=== PATIENT | male | born 1965 | race Caucasian/White ===

== ENCOUNTER 2019-04-25 12:53 | Inpatient (IN) | payer OTHER ==
[~2019-04-25] VITALS: Ht 185.4 cm; Wt 124.8 kg
[2019-04-25] VITALS (27 sets, daily range): BP systolic 129–179; BP diastolic 70–99; PULSE 98–118; RESP 12–29; Ht 185.4 cm; Wt 124.8 kg
[~2019-04-25 12:53] MED LIST: CEFAZOLIN 1 GM INJ ONE; ROCURONIUM 50 MG INJ ONE; SUCCINYLCHOLINE CHLORIDE 100 MG/5 ML SYG IV ONE
[2019-04-25] MEDS ORDERED: LISI10TA2 PO (13:22)
[2019-04-25] MEDS ORDERED: AMLO5TAB4 PO (13:22)
[2019-04-25] MEDS ORDERED: ATOR20TA38 PO (13:23)
--- NOTE | 2019-04-25 15:17 | HPN ---
Date/Time of Note Date/Time of Note DATE: 04/25/19 TIME: 15:17 Interval H&P Admission Note Pt. seen H&P reviewed: No system changes KAREN KING MD Apr 25, 2019 15:17
[2019-04-25] MEDS ORDERED: SURGIFOAM POWDER 1 GM KIT ONE (15:33)
[2019-04-25] MEDS ORDERED: POLYMYXIN/BACITRACIN 1L IRRIG ONE (15:34)
[2019-04-25] MEDS ORDERED: GELATIN SIZE 100 SPONGE ONE (15:34)
[2019-04-25] MEDS ORDERED: BUPIVACAINE 0.5%/EPI (SDV) 30 ML INJ ONE (15:34)
[2019-04-25] MEDS ORDERED: THROMBIN (BOVINE) 5,000 UNIT VIAL TP ONE (15:34)
--- NOTE | 2019-04-25 15:48 | PREAC ---
Date/Time of Note Date/Time of Note DATE: 04/25/19 TIME: 15:45 Anesthesia Eval and Record Evaluation Time Pre-Procedure Interview DATE: 04/25/19 TIME: 15:45 Age 53 Sex male NPO: 8 hrs Preoperative diagnosis C6-C7 RIGHT SIDED HERNIATED NUCLEUS PULPOSUS WITH RADICULOPATHY Planned procedure C5-C6 C6-C7 ACDF Past Medical History Past Medical History: Includes Cardio: HTN, Dyslipidemia GI: Obesity Surgery & Anesthesia Issues No known issue Meds Anticoagulation: No Beta Conchis within 24 hr: No Reason Beta Conchis not given: Pt. not on B-Conchis Reported Medications Atorvastatin Calcium* (Atorvastatin Calcium*) 20 Mg Tablet, 20 MG PO QHS, #30 TAB 04/25/19 Lisinopril* (Lisinopril*) 10 Mg Tablet, 10 MG PO DAILY, #30 TAB 04/25/19 Amlodipine Besylate* (Norvasc*) 5 Mg Tablet, 5 MG PO DAILY, TAB 04/25/19 Meds reviewed: Yes Allergies Coded Allergies: No Known Allergy (Unverified , 04/25/19) Allergies Reviewed: Yes Labs/Studies Labs Reviewed: Reviewed by anesthesiologist test: N/A Studies: ECG (NL), CXR (NAPD) Pre-procedure Exam Last vitals Vital Signs Date Temp Pulse Resp B/P (MAP) Pulse Ox O2 O2 Flow FiO2 Time Delivery Rate 04/25/19 97.9 98 16 129/84 97 13:54 (99) Airway: Adequate mouth opening, Adequate thyromental dist Mallampati: Mallampati II Teeth: Normal Lung: Normal Heart: Normal ASA Physical Status ASA physical status: 2 Emergency: None Planned Anesthetic General/MAC: ETT Planned Pain Management Parenteral pain med Pre-operative Attestations Prior to commencing anesthesia and surgery, the patient was re-evaluated, there was verification of: *The patient's identity *The results of appropriate recent lab work and preoperative vital signs *The above evaluation not changing prior to induction *Anesthetic plan, risk benefits, alternative and complications discussed with patient/family; questions answered; patient/family understands, accepts and wishes to proceed. Spenser Mckay M.D. Apr 25, 2019 15:47
[2019-04-25] MEDS ORDERED: PROPOFOL 20 ML ONE (15:51)
[2019-04-25] MEDS ORDERED: DEXAMETHASONE 4 MG/ML 5 ML INJ ONE (15:51)
[2019-04-25] MEDS ORDERED: MIDAZOLAM 1 MG/ML 2 ML INJ ONE (15:51)
[2019-04-25] MEDS ORDERED: GLYCOPYRROLATE 0.4 MG INJ ONE (15:51)
[2019-04-25] MEDS ORDERED: CEFAZOLIN 1 GM INJ ONE (15:51)
[2019-04-25] MEDS ORDERED: ONDANSETRON 4 MG INJ ONE (15:51)
[2019-04-25] MEDS ORDERED: NEOSTIGMINE 3 MG/3 ML SYRINGE ONE (15:51)
[2019-04-25] MEDS ORDERED: ROCURONIUM 50 MG INJ ONE (15:51)
[2019-04-25] MEDS ORDERED: EPHEDrine 25 MG/5 ML SYG IV PRN (16:00)
[2019-04-25] MEDS ORDERED: THROMBIN 5000 UNIT VIAL TOP ONE ×3 (16:00→20:30)
[2019-04-25] MEDS ORDERED: OXYCODONE/ACETAMINOPHEN (5/325) TAB PO PRN ×2 (16:00)
[2019-04-25] MEDS ORDERED: ONDANSETRON 4 MG INJ IV PRN ×2 (16:00→21:00)
[2019-04-25] MEDS ORDERED: DIPHENHYDRAMINE 50 MG INJ IV PRN (16:00)
[2019-04-25] MEDS ORDERED: hydrALAzine 20 MG INJ IV PRN (16:00)
[2019-04-25] MEDS ORDERED: ALBUTEROL 0.083% (NEB) 2.5 MG/3 ML AMP HHN PRN (16:00)
[2019-04-25] MEDS ORDERED: TRIMETHOBENZAMIDE 100 MG/ML VIAL IM PRN (16:00)
[2019-04-25] MEDS ORDERED: IPRATROPIUM (NEB) 0.5 MG/2.5 ML AMP HHN PRN (16:00)
[2019-04-25] MEDS ORDERED: MIDAZOLAM 1 MG/ML 2 ML INJ IV PRN (16:00)
[2019-04-25] MEDS ORDERED: HYDROmorphONE 1 MG/5 ML IV SYRINGE IV PRN ×3 (16:00)
[2019-04-25] MEDS ORDERED: FENTAnyl 50 MCG/ML VIAL IV PRN ×2 (16:00)
[2019-04-25] MEDS ORDERED: MEPERIDINE 25 MG INJ IV PRN (16:00)
[2019-04-25] MEDS ORDERED: FENTAnyl 50 MCG/ML VIAL ONE ×2 (19:45→21:32)
--- NOTE | 2019-04-25 20:51 | OPR ---
Date/Time of Note Date/Time of Note DATE: 04/25/19 TIME: 20:44 Operative Report Free Text/Dictation DATE OF OPERATION: 04/25/2019 PREOPERATIVE DIAGNOSES: 1. C5-6 degenerative disk disease with severe central and foraminal stenosis with right greater than left sided radiculopathy 2. C6-7 degenerative disk disease with severe central and foraminal stenosis with right greater than left sided radiculopathy 3. Morbid Obesity BMI: 36.3 kg/m2 w/ hx of HTN POSTOPERATIVE DIAGNOSES: 1. C5-6 degenerative disk disease with severe central and foraminal stenosis wi th right greater than left sided radiculopathy 2. C6-7 degenerative disk disease with severe central and foraminal stenosis with right greater than left sided radiculopathy 3. Morbid Obesity BMI: 36.3 kg/m2 w/ hx of HTN OPERATION PERFORMED: 1.Anterior cervical level C5-6 diskectomy with central and foraminal decompression 2. Anterior cervical disc C5-6 instrumented fusion with allograft 3.Anterior cervical level C6-7 diskectomy with central and foraminal decompression 4. Anterior cervical disc C6-7 instrumented fusion with allograft 5. Use of operative microscope SURGEON: Karen King MD SURVEY PROJECT MANAGER: MEJIA Carrasco INDICATIONS: Patient is a 53 -year-old male who presents with a 6 week history of neck and right greater than right upper extremity pain with progressive weakness. After having failed all attempts at conservative management, surgical treatment was recommended. He understood the risks included, but were not limited to, infection, neurologic injury, verve root and spinal cord injury, blood loss, dysphagia, dysphonia, espohogeal injury, dural tear, pseudarthosis, adjacent segment disease, persistence of preoperative symptoms and a potential need for further operative procedures and he elected to proceed with surgery. PROCEDURE IN DETAIL: The patient was identified in the pre-operative area where the operative site was marked in indelible ink. He was brought in the operating room. General anesthesia was obtained. Preoperative antibiotics were given. He was carefully positioned supine on the radiolucent table. The arms were padded and tucked at the sides. The neck was sterilely prepped and draped in the usual fashion. A standard left-sided skin incision was made in a prominent anterior skin fold. This was continued down through subcutaneous tissue to the platysma fascia. Full-thickness skin flaps were developed. The platysma was split in line with the direction of its fibers. The dissection proceeded through the deep cervical fascia at the interval between the esophagus and spine. The prev ertebral fascia was carefully incised, cleared off at the anterior aspect of the C6-7 disk space. The anterior longitudinal ligament was carefully isolated as was the longus coli bilaterally. A [place] retraction cannula was placed into the C6 vertebral body, and an intraoperative radiograph was obtained to confirm the location of the midline along with the operative level. Once this was confirmed, a 2nd [place] pin was placed in the C7 vertebral body, and the longus colli was mobilized bilaterally using bipolar cautery and an elevator. A deep self- retaining retractor was placed underneath the longus colli bilaterally and then distraction was applied across the interspace. The operative microscope was at this point brought in. The osteophyte projecting over the anterior aspect of the C6-7 disk space was at this point resected with a spinal rongeur, and then the anterior portion of the disk was incised with a #15 blade. The disk was excised in its entirety using a series of pituitary rongeurs and angled curettes back to the posterior longitudinal ligament. The uncovertebral osteophyte was resected to allow for foraminal decompression. A foraminotomy was performed bilaterally until a probe could be easily passed along the pathway of the C7 nerve roots. The posterior disk and the PLL were also removed using a nerve hook and a 2mm kerrison. The cord was noted to be decompressed. Hemostasis was obtained at this point, and then a series of trial sizers were used to select an appropriated size allograft spacer. Care was take not to disrupt the endplates. Intraoperative radiographs demonstrated good alignment of the trial, and then the final implant was selected and then inserted into the disk space. This was positioned appropriately and extended to the back of the C6 and C7 vertebral bodies. We used a 7mm height and 7 degree lordotic allograft implant. We then focused on the C5-6 level. Once this was confirmed, a 2nd [place] pin was placed in the C6 vertebral body, and the longus colli was mobilized bilaterally using bipolar cautery and an elevator. A deep self-retaining retractor was placed underneath the longus colli bilaterally and then distraction was applied across the interspace. The operative microscope was at this point brought in. The osteophyte projecting over the anterior aspect of the C5-6 disk space was at this point resected with a spinal rongeur, and then the anterior portion of the disk was incised with a #15 blade. The disk was excised in its entirety using a series of pituitary rongeurs and angled curettes back to the posterior longitudinal ligament. The uncovertebral osteophyte was resected to allow for foraminal decompression. A foraminotomy was performed bilaterally until a probe could be easily passed along the pathway of the C6 nerve roots. The posterior disk and the PLL were also removed using a nerve hook and a 2mm kerrison. The cord was noted to be decompressed. Hemostasis was obtained at this point, and then a series of trial sizers were used to select an appropriated size allograft spacer. Care was take not to disrupt the endplates. Intraoperative radiographs demonstrated good alignment of the trial, and then the final implant was selected and then inserted into the disk space. This was positioned appropriately and extended to the back of the C5 and C6 vertebral bodies. We used a 6mm height and 7 degree lordotic allograft implant. We then chose an appropriate sized plate (32mm) was placed and secured it in standard fashion. X-Rays were taken to ensure appropriate alignment and length of the plate as well as screw sizes. An extra 50 minutes was taken during this procedure due to the complexity of the case given the patients body habitus and morbid obesity (BMI: 36.3 kg/m2 w/ hx of HTN). The operative site was washed out extensively with sterile normal saline. There was no significant bleeding. The [place] pins were removed, and the sites were blocked off with bone wax. The platysma fascia was then closed with 3-0 Vicryl suture in a running simple fashion over a medium hemovac drain, followed by 4-0 moncryl to close the skin in a running subcuticular fashion. Dermabond was placed, followed by a sterile dressing. The patient was extubated and transferred out to the postanesthesia care unit in a hard collar in good condition. There were no complications. Procedure Date: Apr 25, 2019 Preoperative Diagnosis 1. C5-6 degenerative disk disease with severe central and foraminal stenosis with right greater than left sided radiculopathy 2. C6-7 degenerative disk disease with severe central and foraminal stenosis with right greater than left sided radiculopathy 3. Morbid Obesity BMI: 36.3 kg/m2 w/ hx of HTN Postoperative Diagnosis 1. C5-6 degenerative disk disease with severe central and foraminal stenosis with right greater than left sided radiculopathy 2. C6-7 degenerative disk disease with severe central and foraminal stenosis with right greater than left sided radiculopathy 3. Morbid Obesity BMI: 36.3 kg/m2 w/ hx of HTN Operation/Procedure Performed 1.Anterior cervical level C5-6 diskectomy with central and foraminal decom pression 2. Anterior cervical disc C5-6 instrumented fusion with allograft 3.Anterior cervical level C6-7 diskectomy with central and foraminal decompression 4. Anterior cervical disc C6-7 instrumented fusion with allograft 5. Use of operative microscope Surgeon see signature line Reed Or Wind Instrument Tuner MEJIA Upton Anesthesia Type: general Estimated Blood Loss: 10 - 50 ml's Transfusion none Specimen none Grafts/Implants see op report Tubes/Drains medium hemovac Complications none Pt Condition Post Procedure: stable Disposition: PACU Procedure Description PROCEDURE IN DETAIL: The patient was identified in the pre-operative area where the operative site was marked in indelible ink. He was brought in the operating room. General anesthesia was obtained. Preoperative antibiotics were given. He was carefully positioned supine on the radiolucent table. The arms were padded and tucked at the sides. The neck was sterilely prepped and draped in the usual fashion. A standard left-sided skin incision was made in a prominent anterior skin fold. This was continued down through subcutaneous tissue to the platysma fascia. Full-thickness skin flaps were developed. The platysma was split in line with the direction of its fibers. The dissection proceeded through the deep cervical fascia at the interval between the esophagus and spine. The prevertebral fascia was carefully incised, cleared off at the anterior aspect of the C6-7 disk space. The anterior longitudinal ligament was carefully isolated as was the longus coli bilaterally. A [place] retraction cannula was placed into the C6 vertebral body, and an intraoperative radiograph was obtained to confirm the location of the midline along with the operative level. Once this was confirmed, a 2nd [place] pin was placed in the C7 vertebral body, and the longus colli was mobilized bilaterally using bipolar cautery and an elevator. A deep self-retaining retractor was placed underneath the longus colli bilaterally and then distraction was applied across the interspace. The operative microscope was at this point brought in. The osteophyte projecting over the anterior aspect of the C6-7 disk space was at this point resected with a spinal rongeur, and then the anterior portion of the disk was incised with a #15 blade. The disk was excised in its entirety using a series of pituitary rongeurs and angled curettes back to the posterior longitudinal ligament. The uncovertebral osteophyte was resected to allow for foraminal decompression. A foraminotomy was performed bilaterally until a probe could be easily passed along the pathway of the C7 nerve roots. The posterior disk and the PLL were also removed using a nerve hook and a 2mm kerrison. The cord was noted to be decompressed. Hemostasis was obtained at this point, and then a series of trial sizers were used to select an appropriated size allograft spacer. Care was take not to disrupt the endplates. Intraoperative radiographs demonstrated good alignment of the trial, and then the final implant was selected and then inserted into the disk space. This was positioned appropriately and extended to the back of the C6 and C7 vertebral bodies. We used a 7mm height and 7 degree lordotic allograft implant. We then focused on the C5-6 level. Once this was confirmed, a 2nd [place] pin was placed in the C6 vertebral body, and the longus colli was mobilized bilaterally using bipolar cautery and an elevator. A deep self-retaining retractor was placed underneath the longus colli bilaterally and then distraction was applied across the interspace. The operative microscope was at this point brought in. The osteophyte projecting over the anterior aspect of the C5-6 disk space was at this point resected with a spinal rongeur, and then the anterior portion of the disk was incised with a #15 blade. The disk was excised in its entirety using a series of pituitary rongeurs and angled curettes back to the posterior longitudinal ligament. The uncovertebral osteophyte was resected to allow for foraminal decompression. A foraminotomy was performed bilaterally until a probe could be easily passed along the pathway of the C6 nerve roots. The posterior disk and the PLL were also removed using a nerve hook and a 2mm kerrison. The cord was noted to be decompressed. Hemostasis was obtained at this point, and then a series of trial sizers were used to select an appropriated size allograft spacer. Care was take not to disrupt the endplates. Intraoperative radiographs demonstrated good alignment of the trial, and then the final implant was selected and then inserted into the disk space. This was positioned appropriately and extended to the back of the C5 and C6 vertebral bodies. We used a 6mm height and 7 degree lordotic allograft implant. We then chose an appropriate sized plate (32mm) was placed and secured it in standard fashion. X-Rays were taken to ensure appropriate alignment and length of the plate as well as screw sizes. An extra 50 minutes was taken during this procedure due to the complexity of the case given the patients body habitus and morbid obesity (BMI: 36.3 kg/m2 w/ hx of HTN). The operative site was washed out extensively with sterile normal saline. There was no significant bleeding. The [place] pins were removed, and the sites were blocked off with bone wax. The platysma fascia was then closed with 3-0 Vicryl suture in a running simple fashion over a medium hemovac drain, followed by 4-0 moncryl to close the skin in a running subcuticular fashion. Dermabond was placed, followed by a sterile dressing. The patient was extubated and transferred out to the postanesthesia care unit in a hard collar in good condition. There were no complications. KAREN KING MD Apr 25, 2019 20:51
[2019-04-25] MEDS ORDERED: SUGAMMADEX SODIUM 200 MG/2 ML VIAL IV ONE (20:53)
[2019-04-25] MEDS ORDERED: HYDROCODONE/APAP (5/325) TAB PO PRN ×2 (21:00)
[2019-04-25] MEDS ORDERED: ACETAMINOPHEN 1000MG/100ML IV 100 ML IVPB ONE (21:00)
[2019-04-25] MEDS ORDERED: PROCHLORPERAZINE 10 MG TAB PO PRN (21:00)
[2019-04-25] MEDS ORDERED: AL HYDROX/MG HYDROX/SIMETH 30 ML CUP PO PRN (21:00)
[2019-04-25] MEDS ORDERED: ACETAMINOPHEN 325 MG TAB PO PRN (21:00)
[2019-04-25] MEDS ORDERED: NALOXONE (0.4 MG/ML) INJ IV PRN (21:00)
[2019-04-25] MEDS ORDERED: NACL 0.9% 3 ML SYG IV SCH (21:00)
--- NOTE | 2019-04-25 21:08 | PAC ---
Date/Time of Note Date/Time of Note DATE: 04/25/19 TIME: 21:08 Post-Anesthesia Notes Post-Anesthesia Note Last documented vital signs Vital Signs Date Temp Pulse Resp B/P (MAP) Pulse Ox O2 O2 Flow FiO2 Time Delivery Rate 04/25/19 97.9 98 16 129/84 97 13:54 (99) Activity: WNL Respiratory function: WNL Cardiovascular function: WNL Mental status: Baseline Pain reasonably controlled: Yes Hydration appropriate: Yes Nausea/Vomiting absent: Yes Spenser Mckay M.D. Apr 25, 2019 21:08
[2019-04-25] MEDS: HYDROmorphONE 0.2 MG/ML PCA IV SCH (21:18)
[2019-04-25] MEDS: FENTAnyl 50 MCG/ML VIAL IV PRN ×2 (21:41→21:49)
[2019-04-25] MEDS ORDERED: oxyCODONE (CR) 10 MG TAB [oxyCONTIN] PO ONE (22:26)
[2019-04-25] MEDS: LIDOCAINE 5% PATCH TD SCH (22:30)
[2019-04-25] MEDS: LABETALOL HCL 20MG INJ IV PRN ×2 (22:31→22:52)
[2019-04-25] MEDS: oxyCODONE (CR) 10 MG TAB [oxyCONTIN] PO SCH (22:34)
[2019-04-26] VITALS (8 sets, daily range): BP systolic 110–140; BP diastolic 65–82; PULSE 97–116; RESP 17–19
[2019-04-26] MEDS: CEFAZOLIN 1 GM/50 ML (PMX) 50 ML IVPB SCH ×4 (01:01→17:32)
[2019-04-26] MEDS: ACETAMINOPHEN 1000MG/100ML IV 100 ML IVPB PRN ×2 (01:30→07:54)
[2019-04-26] MEDS: HYDROmorphONE 0.2 MG/ML PCA IV SCH ×4 (02:27→18:53)
[2019-04-26] MEDS ORDERED: DEXAMETHASONE 4 MG/ML 1 ML INJ IV ONE ×2 (08:30)
[2019-04-26] MEDS ORDERED: HYDROmorphONE 0.2 MG/ML PCA IV SCH (08:30)
[2019-04-26] MEDS: LIDOCAINE 5% PATCH TD SCH (09:00)
[2019-04-26] MEDS ORDERED: GLUCAGON 1 MG INJ IM PRN (09:00)
[2019-04-26] MEDS ORDERED: GLUCOSE GEL 15 GRAM TUBE BUCCAL PRN (09:00)
[2019-04-26] MEDS ORDERED: GLUCOSE GEL 15 GRAM TUBE PO PRN ×2 (09:00)
[2019-04-26] MEDS ORDERED: oxyCODONE (CR) 10 MG TAB [oxyCONTIN] PO SCH (09:00)
[2019-04-26] MEDS ORDERED: DEXTROSE 50% 50 ML SYRINGE IV PRN ×2 (09:00)
[2019-04-26] MEDS: SOD CHLORIDE 0.9% 1,000 ML IV SCH ×2 (09:02→22:16)
[2019-04-26] MEDS: AMLODIPINE 5 MG TAB PO SCH (09:04)
[2019-04-26] MEDS: LISINOPRIL 10 MG TAB PO SCH (09:04)
[2019-04-26] MEDS: DOCUSATE SODIUM 100 MG CAP PO SCH ×2 (09:04→20:50)
[2019-04-26] MEDS: oxyCODONE (CR) 10 MG TAB [oxyCONTIN] PO SCH (09:05)
--- NOTE | 2019-04-26 09:20 | CONS ---
DATE OF ADMISSION: 04/25/2019 DATE OF CONSULTATION: 04/26/[address] King: Thank you very much for allowing me to evaluate this 53-year-old male who underwent cervical spine coronel rgery yesterday. HISTORICAL EVENTS: As you well know, this patient has had ongoing pain involving his neck and right arm radicular pain for the last several years. Because of progressive worsening of the same and the patient not responded to conservative therapy following appropriate imaging studies, he elected to pr oceed with surgical intervention. This morning he notes some modest neck pain, but significant impro vement in his right arm radicular pain. He denies cough, wheezing, shortness of breath, nausea, vomi ting, or chest pain. PAST MEDICAL HISTORY: 1. Overweight. 2. Recent history of elevated blood sugar, presently not on medications. MEDICATIONS: 1. Atorvastatin 20 mg per day. 1. Amlodipine 5 mg per day. ALLERGIES: NONE. FAMILY HISTORY: Noncontributory. PHYSICAL EXAMINATION: VITAL SIGNS: Blood pressure 128/80, pulse 70, respirations were 18, was afebrile. EYES: Extraocular muscles were full. NOSE, MOUTH, AND THROAT: Normal. NECK: No jugular venous distention, no adenopathy. LUNGS: Clear. HEART: Rhythm regular. ABDOMEN: Nontender. Liver and spleen were not palpable. No mass or tenderness were noted. EXTREMITIES: No edema, no calf tenderness. IMPRESSION AND PLAN: 1. Stable postoperative cervical spine surgery. 2. History of hypertension. Blood pressure medications will be resumed. 3. Hyperlipidemia without history of coronary disease. Statin will be continued. 4. Recent detection of elevated blood sugar, the same will be monitored and short-acting insulin pro vided prior to meals. We will have dietitian evaluate him as well. Diet will be a carbohydrate cont rolled. Dictated By: KATHERINE NG MD MR/NTS Conf#: [id number] DID#: [id number] CC: KAREN KING MD; KATHERINE NG MD; IRAM PIMENTEL MD;*EndCC*
[2019-04-26] MEDS: INSULIN ASPART [NOVOLOG] 3 ML PEN SC SCH ×3 (10:12→18:59)
[2019-04-26] MEDS: CARISOPRODOL 350 MG TAB PO PRN ×2 (16:58→22:14)
[2019-04-26] MEDS ORDERED: LORAZEPAM 2 MG INJ IV PRN (17:30)
[2019-04-26] MEDS: traZODone 50 MG TAB PO SCH (20:49)
[2019-04-26] MEDS: ATORVASTATIN 20 MG TAB PO SCH (20:49)
[2019-04-27] MEDS: HYDROmorphONE 0.2 MG/ML PCA IV SCH ×5 (00:09→21:09)
[2019-04-27 04:00] VITALS: BP 122/79; PULSE 97; RESP 18
[2019-04-27] MEDS: CARISOPRODOL 350 MG TAB PO PRN ×3 (05:06→21:00)
[2019-04-27] MEDS: INSULIN ASPART [NOVOLOG] 3 ML PEN SC SCH ×3 (07:20→18:08)
[2019-04-27 07:40] VITALS: BP 116/76; PULSE 93; RESP 18
[2019-04-27] MEDS: DOCUSATE SODIUM 100 MG CAP PO SCH ×2 (08:46→21:00)
[2019-04-27] MEDS: AMLODIPINE 5 MG TAB PO SCH (08:47)
[2019-04-27] MEDS: LISINOPRIL 10 MG TAB PO SCH (08:47)
[2019-04-27] MEDS ORDERED: DEXAMETHASONE 10 MG/ML 1 ML INJ IV ONE (09:00)
--- NOTE | 2019-04-27 09:04 | CONS ---
Assessment/Plan Assessment/Plan Assessment/Plan (Daily) op report 1. C5-6 degenerative disk disease with severe central and foraminal stenosis with right greater than left sided radiculopathy 2. C6-7 degenerative disk disease with severe central and foraminal stenosis with right greater than left sided radiculopathy 3. Morbid Obesity BMI: 36.3 kg/m2 w/ hx of HTN Change for a short period of time to FORGESMITH off in 1` to 2 day at the most, TCA for sleep muscle relaxants pt hi risk for use of short acting opioids in the future secondary to anxiety syndrome. Consultation Date/Type/Reason Admit Date/Time Apr 25, 2019 at 12:53 Date/Time of Note DATE: 04/27/19 TIME: 08:55 Hx of Present Illness I was not conracted about this consultation for 24hrs 63 year old gentleman bonifacio mcdaniel L/S history of chronic neck pains . Lately he has been in severe pain without recent new injury. He is unable to do ADL's with his right arm secondary to pain and loss of ROM... .as an put patient he has taken low doses of opioids without relief. Pain interferes with all his avtivities including sleep, mood and sleeping patterns. He is not negotiating for higher doses of pain meds or specific meds. No past medical history of street drug usAGE alcohol or excessive smoking history..... Past Medical History Medical History: high cholesterol, hypertension, other (ogessity) Home Meds Reported Medications Atorvastatin Calcium* (Atorvastatin Calcium*) 20 Mg Tablet, 20 MG PO QHS, #30 TAB 04/25/19 Lisinopril* (Lisinopril*) 10 Mg Tablet, 10 MG PO DAILY, #30 TAB 04/25/19 Amlodipine Besylate* (Norvasc*) 5 Mg Tablet, 5 MG PO DAILY, TAB 04/25/19 Medications Current Medications Prochlorperazine (Compazine) 10 mg Q4H PRN PO NAUSEA/VOMITING; Start 04/25/19 at 21:00 Ondansetron HCl (Zofran Inj) 4 mg Q6H PRN IV NAUSEA/VOMITING; Start 04/25/19 at 21:00 Al Hydrox/Mg Hydrox/Simethicone (Mag-Al Plus) 15 ml Q4H PRN PO .CONSTIPATION; Start 04/25/19 at 21:00 Docusate Sodium (Colace) 100 mg BID PO Last administered on 04/27/19at 08:46; Admin Dose 100 MG; Start 04/26/19 at 09:00 Acetaminophen (Tylenol Tab) 650 mg Q4H PRN PO TEMP GREATER THAN 101F OR REGALADO; Start 04/25/19 at 21:00 IV Flush (NS 3 ml) 3 ml PER PROTOCOL IV Last administered on 04/25/19at 23:54; Admin Dose 3 ML; Start 04/25/19 at 21:00 Naloxone HCl (Narcan) 0.2 mg Q2M PRN IV RR 8 BREATHS/MIN OR LESS; Start 04/25/19 at 21:00 Amlodipine Besylate (Norvasc) 5 mg DAILY PO Last administered on 04/26/19at 09:04; Admin Dose 5 MG; Start 04/26/19 at 09:00 Atorvastatin Calcium (Lipitor) 20 mg QHS PO Last administered on 04/26/19at 20:49; Admin Dose 20 MG; Start 04/26/19 at 21:00 Lisinopril (Zestril) 10 mg DAILY PO Last administered on 04/27/19at 08:47; Admin Dose 10 MG; Start 04/26/19 at 09:00 Sodium Chloride 1,000 ml @ 75 mls/hr [id number] IV Last administered on 04/26/19at 22:16; Admin Dose 75 MLS/HR; Start 04/26/19 at 08:30 Insulin Aspart (Novolog Insulin Pen) NOVOLOG *MILD* ALGORITHM AC MEALS SC Last administered on 04/26/19at 18:59; Admin Dose 2 UNIT; Start 04/26/19 at 11:10 Miscellaneous Information 1 ea NOTE XX ; Start 04/26/19 at 09:00 Glucose (Glutose) 15 gm Q15M PRN PO DECREASED GLUCOSE; Start 04/26/19 at 09:00 Glucose (Glutose) 22.5 gm Q15M PRN PO DECREASED GLUCOSE; Start 04/26/19 at 09:00 Dextrose (D50w Syringe) 25 ml Q15M PRN IV DECREASED GLUCOSE; Start 04/26/19 at 09:00 Dextrose (D50w Syringe) 50 ml Q15M PRN IV DECREASED GLUCOSE; Start 04/26/19 at 09:00 Glucagon (Glucagen) 1 mg Q15M PRN IM DECREASED GLUCOSE; Start 04/26/19 at 09:00 Glucose (Glutose) 15 gm Q15M PRN BUCCAL DECREASED GLUCOSE; Start 04/26/19 at 09:00 Carisoprodol (Soma) 350 mg TID PRN PO SPASM Last administered on 04/27/19at 05:06; Admin Dose 350 MG; Start 04/26/19 at 16:30 Trazodone HCl (Desyrel) 50 mg HS PO Last administered on 04/26/19at 20:49; Admin Dose 50 MG; Start 04/26/19 at 21:00 Hydromorphone HCl (Dilaudid FORGESMITH) 0.5 MG/HR CONTINUOUS R... Q4PCA IV Last administered on 04/27/19at 06:49; Admin Dose 6 MG; Start 04/26/19 at 16:30 Lorazepam (Ativan) 1 mg Q6H PRN IV agitation Last administered on 04/26/19at 18:06; Admin Dose 1 MG; Start 04/26/19 at 17:30 Dexamethasone (Decadron) 10 mg ONCE ONCE IV Last administered on 04/27/19at 08:48; Admin Dose 10 MG; Start 04/27/19 at 09:00; Stop 04/27/19 at 09:01 Allergies: Coded Allergies: No Known Allergy (Unverified , 04/25/19) Social History Alcohol Use: rarely Smoking Status: Former smoker Drug Use: none Exam/Review of Systems Exam Vitals Vital Signs Date Temp Pulse Resp B/P (MAP) Pulse Ox O2 O2 Flow FiO2 Time Delivery Rate 04/27/19 98.0 93 18 116/76 96 07:40 (89) 04/26/19 2.0 01:30 04/26/19 Nasal 01:30 Cannula Intake and Output 04/26/19 04/26/19 04/27/19 1515:00 23:00 07:00 IntakeIntake Total 1980 ml 630 ml OutputOutput Total 1350 ml 800 ml 45 ml BalanceBalance -1350 ml 1180 ml 585 ml Constitutional: alert, oriented, well developed, distress Psych: no complaints, nl mood/affect, anxiety Head: normocephalic, atraumatic Eyes: nl conjunctiva, EOMI, nl lids, nl sclera, PERRL Neck: No supple, No non-tender, No jvd, No bruits, No masses, No thyromegaly, No nuchal rigidity, No other Respiratory: clear to auscultation, normal air movement; No congested cough, No crackles/rales, No diminished breath sounds, No intercostal retraction, No labored breathing, No respirations, No tactile fremitus, No wheezing, No other Cardiovascular: regular rate and rhythm, nl pulses; No bruits, No diastolic murmur, No edema, No gallop, No irregular rhythm, No jugular venous distention (JVD), No murmurs/extra sounds, No rub, No systolic murmur, No S3, No S4, No other Gastrointestinal: soft, nl liver, spleen, non-tender; No ascites, No bowel sounds, No distended, No firm, No hepatomegaly, No mass, No rebound or guarding, No splenomegaly, No surgical scars, No tender, No other Neurological: BED CONTROL SPECIALIST II-XII intact, nl mental status, nl speech, nl strength Skin: No nl turgor, No rash or lesions, No diaphoresis, No ecchymosis, No laceration, No puncture, No other Lymph: No nl lymph nodes, No enlarged, No nontender, No other Results Result Diagram: 04/27/1944104/27/192 Results 24hrs Laboratory Tests Test 04/26/19 09:44 04/26/19 12:55 04/26/19 18:55 04/27/19 04:42 Bedside Glucose 167 184 204 White Blood Count 15.9 H Red Blood Count 3.70 L Hemoglobin 12.4 L Hematocrit 37.5 L Mean Corpuscular 101.4 H Volume Mean Corpuscular 33.5 H Hemoglobin Mean Corpuscular 33.1 Hemoglobin Concent Red Cell 11.8 Distribution Width Platelet Count 248 Mean Platelet Volume 8.9 Immature 0.500 H Granulocytes % Neutrophils % 76.9 Lymphocytes % 14.4 L Monocytes % 8.1 Eosinophils % 0.0 Basophils % 0.1 Nucleated Red Blood 0.0 Cells % Immature 0.080 H Granulocytes # Neutrophils # 12.2 H Lymphocytes # 2.3 Monocytes # 1.3 H Eosinophils # 0.0 Basophils # 0.0 Nucleated Red Blood 0.0 Cells # Sodium Level 140 Potassium Level 4.5 Chloride Level 98 Carbon Dioxide Level 31 Anion Gap 11 Blood Urea Nitrogen 17 Creatinine 0.73 Est Glomerular > 60 Filtrat Rate mL/min Glucose Level 148 # Hemoglobin A1c 5.8 Calcium Level 8.4 Phosphorus Level 4.5 Magnesium Level 2.1 Test 04/27/19 08:43 Bedside Glucose 138 Medications Medication Current Medications Prochlorperazine (Compazine) 10 mg Q4H PRN PO NAUSEA/VOMITING; Start 04/25/19 at 21:00 Ondansetron HCl (Zofran Inj) 4 mg Q6H PRN IV NAUSEA/VOMITING; Start 04/25/19 at 21:00 Al Hydrox/Mg Hydrox/Simethicone (Mag-Al Plus) 15 ml Q4H PRN PO .CONSTIPATION; Start 04/25/19 at 21:00 Docusate Sodium (Colace) 100 mg BID PO Last administered on 04/27/19at 08:46; Admin Dose 100 MG; Start 04/26/19 at 09:00 Acetaminophen (Tylenol Tab) 650 mg Q4H PRN PO TEMP GREATER THAN 101F OR REGALADO; Start 04/25/19 at 21:00 IV Flush (NS 3 ml) 3 ml PER PROTOCOL IV Last administered on 04/25/19at 23:54; Admin Dose 3 ML; Start 04/25/19 at 21:00 Naloxone HCl (Narcan) 0.2 mg Q2M PRN IV RR 8 BREATHS/MIN OR LESS; Start 04/25/19 at 21:00 Amlodipine Besylate (Norvasc) 5 mg DAILY PO Last administered on 04/26/19at 09:04; Admin Dose 5 MG; Start 04/26/19 at 09:00 Atorvastatin Calcium (Lipitor) 20 mg QHS PO Last administered on 04/26/19at 20:49; Admin Dose 20 MG; Start 04/26/19 at 21:00 Lisinopril (Zestril) 10 mg DAILY PO Last administered on 04/27/19at 08:47; Admin Dose 10 MG; Start 04/26/19 at 09:00 Sodium Chloride 1,000 ml @ 75 mls/hr [id number] IV Last administered on 04/26/19at 22:16; Admin Dose 75 MLS/HR; Start 04/26/19 at 08:30 Insulin Aspart (Novolog Insulin Pen) NOVOLOG *MILD* ALGORITHM AC MEALS SC Last administered on 04/26/19at 18:59; Admin Dose 2 UNIT; Start 04/26/19 at 11:10 Miscellaneous Information 1 ea NOTE XX ; Start 04/26/19 at 09:00 Glucose (Glutose) 15 gm Q15M PRN PO DECREASED GLUCOSE; Start 04/26/19 at 09:00 Glucose (Glutose) 22.5 gm Q15M PRN PO DECREASED GLUCOSE; Start 04/26/19 at 09:00 Dextrose (D50w Syringe) 25 ml Q15M PRN IV DECREASED GLUCOSE; Start 04/26/19 at 09:00 Dextrose (D50w Syringe) 50 ml Q15M PRN IV DECREASED GLUCOSE; Start 04/26/19 at 09:00 Glucagon (Glucagen) 1 mg Q15M PRN IM DECREASED GLUCOSE; Start 04/26/19 at 09:00 Glucose (Glutose) 15 gm Q15M PRN BUCCAL DECREASED GLUCOSE; Start 04/26/19 at 09:00 Carisoprodol (Soma) 350 mg TID PRN PO SPASM Last administered on 04/27/19at 05:06; Admin Dose 350 MG; Start 04/26/19 at 16:30 Trazodone HCl (Desyrel) 50 mg HS PO Last administered on 04/26/19at 20:49; Admin Dose 50 MG; Start 04/26/19 at 21:00 Hydromorphone HCl (Dilaudid FORGESMITH) 0.5 MG/HR CONTINUOUS R... Q4PCA IV Last administered on 04/27/19at 06:49; Admin Dose 6 MG; Start 04/26/19 at 16:30 Lorazepam (Ativan) 1 mg Q6H PRN IV agitation Last administered on 04/26/19at 18:06; Admin Dose 1 MG; Start 04/26/19 at 17:30 Dexamethasone (Decadron) 10 mg ONCE ONCE IV Last administered on 04/27/19at 08:48; Admin Dose 10 MG; Start 04/27/19 at 09:00; Stop 04/27/19 at 09:01 IRAM PIMENTEL Apr 27, 2019 09:04
--- NOTE | 2019-04-27 09:23 | CONS ---
Consultation Date/Type/Reason Admit Date/Time Apr 25, 2019 at 12:53 Initial Consult Date Date/Time of Note DATE: 04/27/19 TIME: 09:19 24 HR Interval Summary Free Text/Dictation Pt is POD#2 s/p C5-C7 ACDF. CT scan ordered yesterday does not show evidence of stenosis. He is a chronic pain patient and pain management has been helping us with pain control. He is currently on a LIME SLAKER and we will have pain management help us get him on an oral pain regimen. He had no acute events over-night. His drain put out 45 cc. He has 4/5 strength in his left Triceps and IO and some decreased sensation in his b/l thumb, index and middle fingers which is improving. He is otherwise NVI. Plan is to d/c home rivka or Mon once his pain is under control w/ PO meds and his drain output decreases. Exam/Review of Systems Exam Vitals Vital Signs Date Temp Pulse Resp B/P (MAP) Pulse Ox O2 O2 Flow FiO2 Time Delivery Rate 04/27/19 98.0 93 18 116/76 96 07:40 (89) 04/26/19 2.0 01:30 04/26/19 Nasal 01:30 Cannula Intake and Output 04/26/19 04/26/19 04/27/19 1515:00 23:00 07:00 IntakeIntake Total 1980 ml 630 ml OutputOutput Total 1350 ml 800 ml 45 ml BalanceBalance -1350 ml 1180 ml 585 ml Results Result Diagram: 04/27/19 0442 04/27/19 0442 Results 24hrs Laboratory Tests Test 04/26/19 09:44 04/26/19 12:55 04/26/19 18:55 04/27/19 04:42 Bedside Glucose 167 184 204 White Blood Count 15.9 H Red Blood Count 3.70 L Hemoglobin 12.4 L Hematocrit 37.5 L Mean Corpuscular 101.4 H Volume Mean Corpuscular 33.5 H Hemoglobin Mean Corpuscular 33.1 Hemoglobin Concent Red Cell 11.8 Distribution Width Platelet Count 248 Mean Platelet Volume 8.9 Immature 0.500 H Granulocytes % Neutrophils % 76.9 Lymphocytes % 14.4 L Monocytes % 8.1 Eosinophils % 0.0 Basophils % 0.1 Nucleated Red Blood 0.0 Cells % Immature 0.080 H Granulocytes # Neutrophils # 12.2 H Lymphocytes # 2.3 Monocytes # 1.3 H Eosinophils # 0.0 Basophils # 0.0 Nucleated Red Blood 0.0 Cells # Sodium Level 140 Potassium Level 4.5 Chloride Level 98 Carbon Dioxide Level 31 Anion Gap 11 Blood Urea Nitrogen 17 Creatinine 0.73 Est Glomerular > 60 Filtrat Rate mL/min Glucose Level 148 # Hemoglobin A1c 5.8 Calcium Level 8.4 Phosphorus Level 4.5 Magnesium Level 2.1 Test 04/27/19 08:43 Bedside Glucose 138 Medications Medication Current Medications Prochlorperazine (Compazine) 10 mg Q4H PRN PO NAUSEA/VOMITING; Start 04/25/19 at 21:00 Ondansetron HCl (Zofran Inj) 4 mg Q6H PRN IV NAUSEA/VOMITING; Start 04/25/19 at 21:00 Al Hydrox/Mg Hydrox/Simethicone (Mag-Al Plus) 15 ml Q4H PRN PO .CONSTIPATION; Start 04/25/19 at 21:00 Docusate Sodium (Colace) 100 mg BID PO Last administered on 04/27/19at 08:46; Admin Dose 100 MG; Start 04/26/19 at 09:00 Acetaminophen (Tylenol Tab) 650 mg Q4H PRN PO TEMP GREATER THAN 101F OR REGALADO; Start 04/25/19 at 21:00 IV Flush (NS 3 ml) 3 ml PER PROTOCOL IV Last administered on 04/25/19at 23:54; Admin Dose 3 ML; Start 04/25/19 at 21:00 Naloxone HCl (Narcan) 0.2 mg Q2M PRN IV RR 8 BREATHS/MIN OR LESS; Start 04/25/19 at 21:00 Amlodipine Besylate (Norvasc) 5 mg DAILY PO Last administered on 04/26/19at 09:04; Admin Dose 5 MG; Start 04/26/19 at 09:00 Atorvastatin Calcium (Lipitor) 20 mg QHS PO Last administered on 04/26/19at 20:49; Admin Dose 20 MG; Start 04/26/19 at 21:00 Lisinopril (Zestril) 10 mg DAILY PO Last administered on 04/27/19at 08:47; Admin Dose 10 MG; Start 04/26/19 at 09:00 Sodium Chloride 1,000 ml @ 75 mls/hr [id number] IV Last administered on 04/26/19 22:16; Admin Dose 75 MLS/HR; Start 04/26/19 at 08:30 Insulin Aspart (Novolog Insulin Pen) NOVOLOG *MILD* ALGORITHM AC MEALS SC Last administered on 04/26/19at 18:59; Admin Dose 2 UNIT; Start 04/26/19 at 11:10 Miscellaneous Information 1 ea NOTE XX ; Start 04/26/19 at 09:00 Glucose (Glutose) 15 gm Q15M PRN PO DECREASED GLUCOSE; Start 04/26/19 at 09:00 Glucose (Glutose) 22.5 gm Q15M PRN PO DECREASED GLUCOSE; Start 04/26/19 at 09:00 Dextrose (D50w Syringe) 25 ml Q15M PRN IV DECREASED GLUCOSE; Start 04/26/19 at 09:00 Dextrose (D50w Syringe) 50 ml Q15M PRN IV DECREASED GLUCOSE; Start 04/26/19 at 09:00 Glucagon (Glucagen) 1 mg Q15M PRN IM DECREASED GLUCOSE; Start 04/26/19 at 09:00 Glucose (Glutose) 15 gm Q15M PRN BUCCAL DECREASED GLUCOSE; Start 04/26/19 at 09:00 Carisoprodol (Soma) 350 mg TID PRN PO SPASM Last administered on 04/27/19at 05:06; Admin Dose 350 MG; Start 04/26/19 at 16:30 Trazodone HCl (Desyrel) 50 mg HS PO Last administered on 04/26/19at 20:49; Admin Dose 50 MG; Start 04/26/19 at 21:00 Hydromorphone HCl (Dilaudid LIME SLAKER) 0.5 MG/HR CONTINUOUS R... Q4PCA IV Last administered on 04/27/19 06:49; Admin Dose 6 MG; Start 04/26/19 at 16:30 Lorazepam (Ativan) 1 mg Q6H PRN IV agitation Last administered on 04/26/19at 18:06; Admin Dose 1 MG; Start 04/26/19 at 17:30 KAREN KING MD Apr 27, 2019 09:23
--- NOTE | 2019-04-27 09:59 | CONS ---
Assessment/Plan Assessment/Plan Assessment/Plan (Daily) 1. Stable postoperative cervical spine surgery. Need to transition to PO pain meds and d/c [employer]. Defer to Dr. Carmichael and pain team 2. History of hypertension. cont home meds 3. Hyperlipidemia without history of coronary disease. cont statin 4. DM - ISS; outpatient follow up Stable for discharge medically once transitioned to oral pain meds Consultation Date/Type/Reason Admit Date/Time Apr 25, 2019 at 12:53 Initial Consult Date Date/Time of Note DATE: 04/27/19 TIME: 09:57 24 HR Interval Summary Free Text/Dictation Pain much improved, but dilaudid [employer] increased by pain team yesterday. Patient aware that needs to be transitioned to PO pain meds prior to discharge. Exam/Review of Systems Exam Vitals Vital Signs Date Temp Pulse Resp B/P (MAP) Pulse Ox O2 O2 Flow FiO2 Time Delivery Rate 04/27/19 98.0 93 18 116/76 96 07:40 (89) 04/26/19 2.0 01:30 04/26/19 Nasal 01:30 Cannula Intake and Output 04/26/19 04/26/19 04/27/19 1515:00 23:00 07:00 IntakeIntake Total 1980 ml 630 ml OutputOutput Total 1350 ml 800 ml 45 ml BalanceBalance -1350 ml 1180 ml 585 ml Respiratory: clear to auscultation, normal air movement Cardiovascular: regular rate and rhythm, nl pulses Gastrointestinal: soft, nl liver, spleen, non-tender Results Result Diagram: 04/27/19 0442 04/27/19 0442 Results 24hrs Laboratory Tests Test 04/26/19 12:55 04/26/19 18:55 04/27/19 04:42 04/27/19 08:43 Bedside Glucose 184 204 138 White Blood Count 15.9 H Red Blood Count 3.70 L Hemoglobin 12.4 L Hematocrit 37.5 L Mean Corpuscular 101.4 H Volume Mean Corpuscular 33.5 H Hemoglobin Mean Corpuscular 33.1 Hemoglobin Concent Red Cell 11.8 Distribution Width Platelet Count 248 Mean Platelet Volume 8.9 Immature 0.500 H Granulocytes % Neutrophils % 76.9 Lymphocytes % 14.4 L Monocytes % 8.1 Eosinophils % 0.0 Basophils % 0.1 Nucleated Red Blood 0.0 Cells % Immature 0.080 H Granulocytes # Neutrophils # 12.2 H Lymphocytes # 2.3 Monocytes # 1.3 H Eosinophils # 0.0 Basophils # 0.0 Nucleated Red Blood 0.0 Cells # Sodium Level 140 Potassium Level 4.5 Chloride Level 98 Carbon Dioxide Level 31 Anion Gap 11 Blood Urea Nitrogen 17 Creatinine 0.73 Est Glomerular > 60 Filtrat Rate mL/min Glucose Level 148 # Hemoglobin A1c 5.8 Calcium Level 8.4 Phosphorus Level 4.5 Magnesium Level 2.1 Medications Medication Current Medications Prochlorperazine (Compazine) 10 mg Q4H PRN PO NAUSEA/VOMITING; Start 04/25/19 at 21:00 Ondansetron HCl (Zofran Inj) 4 mg Q6H PRN IV NAUSEA/VOMITING; Start 04/25/19 at 21:00 Al Hydrox/Mg Hydrox/Simethicone (Mag-Al Plus) 15 ml Q4H PRN PO .CONSTIPATION; Start 04/25/19 at 21:00 Docusate Sodium (Colace) 100 mg BID PO Last administered on 04/27/19at 08:46; Admin Dose 100 MG; Start 04/26/19 at 09:00 Acetaminophen (Tylenol Tab) 650 mg Q4H PRN PO TEMP GREATER THAN 101F OR REGALADO; Start 04/25/19 at 21:00 IV Flush (NS 3 ml) 3 ml PER PROTOCOL IV Last administered on 04/25/19at 23:54; Admin Dose 3 ML; Start 04/25/19 at 21:00 Naloxone HCl (Narcan) 0.2 mg Q2M PRN IV RR 8 BREATHS/MIN OR LESS; Start 04/25/19 at 21:00 Amlodipine Besylate (Norvasc) 5 mg DAILY PO Last administered on 04/26/19at 09:04; Admin Dose 5 MG; Start 04/26/19 at 09:00 Atorvastatin Calcium (Lipitor) 20 mg QHS PO Last administered on 04/26/19at 20:49; Admin Dose 20 MG; Start 04/26/19 at 21:00 Lisinopril (Zestril) 10 mg DAILY PO Last administered on 04/27/19at 08:47; Admin Dose 10 MG; Start 04/26/19 at 09:00 Sodium Chloride 1,000 ml @ 75 mls/hr [id number] IV Last administered on 04/26/19 22:16; Admin Dose 75 MLS/HR; Start 04/26/19 at 08:30 Insulin Aspart (Novolog Insulin Pen) NOVOLOG *MILD* ALGORITHM AC MEALS SC Last administered on 04/26/19 18:59; Admin Dose 2 UNIT; Start 04/26/19 at 11:10 Miscellaneous Information 1 ea NOTE XX ; Start 04/26/19 at 09:00 Glucose (Glutose) 15 gm Q15M PRN PO DECREASED GLUCOSE; Start 04/26/19 at 09:00 Glucose (Glutose) 22.5 gm Q15M PRN PO DECREASED GLUCOSE; Start 04/26/19 at 09:00 Dextrose (D50w Syringe) 25 ml Q15M PRN IV DECREASED GLUCOSE; Start 04/26/19 at 09:00 Dextrose (D50w Syringe) 50 ml Q15M PRN IV DECREASED GLUCOSE; Start 04/26/19 at 09:00 Glucagon (Glucagen) 1 mg Q15M PRN IM DECREASED GLUCOSE; Start 04/26/19 at 09:00 Glucose (Glutose) 15 gm Q15M PRN BUCCAL DECREASED GLUCOSE; Start 04/26/19 at 09:00 Carisoprodol (Soma) 350 mg TID PRN PO SPASM Last administered on 04/27/19 05:06; Admin Dose 350 MG; Start 04/26/19 at 16:30 Trazodone HCl (Desyrel) 50 mg HS PO Last administered on 04/26/19at 20:49; Admin Dose 50 MG; Start 04/26/19 at 21:00 Hydromorphone HCl (Dilaudid [employer]) 0.5 MG/HR CONTINUOUS R... Q4PCA IV Last administered on 04/27/19 06:49; Admin Dose 6 MG; Start 04/26/19 at 16:30 Lorazepam (Ativan) 1 mg Q6H PRN IV agitation Last administered on 04/26/19 18:06; Admin Dose 1 MG; Start 04/26/19 at 17:30 BOO CORRAL MD Apr 27, 2019 09:59
[2019-04-27] MEDS: SOD CHLORIDE 0.9% 1,000 ML IV SCH (11:10)
[2019-04-27] MEDS: LIDOCAINE 5% PATCH TD SCH (13:18)
[2019-04-27 16:15] VITALS: BP 120/72; PULSE 97; RESP 18
[2019-04-27 19:25] VITALS: BP 121/73; PULSE 93; RESP 18
[2019-04-27] MEDS: ATORVASTATIN 20 MG TAB PO SCH (21:00)
[2019-04-27] MEDS: traZODone 50 MG TAB PO SCH (22:56)
[2019-04-28] MEDS: HYDROmorphONE 0.2 MG/ML PCA IV SCH ×4 (01:37→16:12)
[2019-04-28 02:00] VITALS: BP 107/64; PULSE 83; RESP 18
[2019-04-28] MEDS: CARISOPRODOL 350 MG TAB PO PRN ×3 (05:48→20:27)
[2019-04-28] MEDS: LIDOCAINE 5% PATCH TD SCH ×2 (08:00→17:06)
[2019-04-28 08:03] VITALS: BP 111/71; PULSE 82; RESP 16
[2019-04-28] MEDS: INSULIN ASPART [NOVOLOG] 3 ML PEN SC SCH ×3 (08:54→18:49)
[2019-04-28] MEDS: LISINOPRIL 10 MG TAB PO SCH (08:56)
[2019-04-28] MEDS: DOCUSATE SODIUM 100 MG CAP PO SCH ×2 (08:56→20:27)
[2019-04-28] MEDS: AMLODIPINE 5 MG TAB PO SCH (08:56)
--- NOTE | 2019-04-28 09:56 | CONS ---
Assessment/Plan Assessment/Plan Assessment/Plan (Daily) 1. Stable postoperative cervical spine surgery. 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 Defer to Dr. Carmichael and pain team 2. History of hypertension. cont home meds 3. Hyperlipidemia without history of coronary disease. cont statin 4. DM - ISS; outpatient follow up Consultation Date/Type/Reason Admit Date/Time Apr 25, 2019 at 12:53 Initial Consult Date Date/Time of Note DATE: 04/28/19 TIME: 09:55 24 HR Interval Summary Free Text/Dictation pain slowly improving, patient states he had 1 bad episode last night with soreness in his upper back. Numbness has improved s/p surgery. 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 Exam/Review of Systems Exam Vitals Vital Signs Date Temp Pulse Resp B/P (MAP) Pulse Ox O2 O2 Flow FiO2 Time Delivery Rate 04/28/19 98.5 82 16 111/71 93 08:03 (84) 04/26/19 2.0 01:30 04/26/19 Nasal 01:30 Cannula Intake and Output 04/27/19 04/27/19 04/28/19 1515:00 23:00 07:00 IntakeIntake Total 1070 ml 1360 ml 1460 ml OutputOutput Total 315 ml 1050 ml BalanceBalance 1070 ml 1045 ml 410 ml Constitutional: alert, oriented, well developed Psych: no complaints Neck: other (C collar in place ) Respiratory: clear to auscultation, normal air movement Cardiovascular: regular rate and rhythm, nl pulses Gastrointestinal: soft, nl liver, spleen, non-tender, bowel sounds Results Result Diagram: 04/27/1944104/27/19441 Results 24hrs Laboratory Tests Test 04/27/19 10:57 04/27/19 17:53 04/28/19 08:52 Bedside Glucose 165 187 103 Medications Medication Current Medications Prochlorperazine (Compazine) 10 mg Q4H PRN PO NAUSEA/VOMITING; Start 04/25/19 at 21:00 Ondansetron HCl (Zofran Inj) 4 mg Q6H PRN IV NAUSEA/VOMITING; Start 04/25/19 at 21:00 Al Hydrox/Mg Hydrox/Simethicone (Mag-Al Plus) 15 ml Q4H PRN PO .CONSTIPATION; Start 04/25/19 at 21:00 Docusate Sodium (Colace) 100 mg BID PO Last administered on 04/28/19at 08:56; Admin Dose 100 MG; Start 04/26/19 at 09:00 Acetaminophen (Tylenol Tab) 650 mg Q4H PRN PO TEMP GREATER THAN 101F OR REGALADO; Start 04/25/19 at 21:00 IV Flush (NS 3 ml) 3 ml PER PROTOCOL IV Last administered on 04/25/19at 23:54; Admin Dose 3 ML; Start 04/25/19 at 21:00 Naloxone HCl (Narcan) 0.2 mg Q2M PRN IV RR 8 BREATHS/MIN OR LESS; Start 04/25/19 at 21:00 Amlodipine Besylate (Norvasc) 5 mg DAILY PO Last administered on 04/26/19at 09:04; Admin Dose 5 MG; Start 04/26/19 at 09:00 Atorvastatin Calcium (Lipitor) 20 mg QHS PO Last administered on 04/27/19at 21:00; Admin Dose 20 MG; Start 04/26/19 at 21:00 Lisinopril (Zestril) 10 mg DAILY PO Last administered on 04/27/19at 08:47; Admin Dose 10 MG; Start 04/26/19 at 09:00 Insulin Aspart (Novolog Insulin Pen) NOVOLOG *MILD* ALGORITHM AC MEALS SC Last administered on 04/27/19at 18:08; Admin Dose 2 UNIT; Start 04/26/19 at 11:10 Miscellaneous Information 1 ea NOTE XX ; Start 04/26/19 at 09:00 Glucose (Glutose) 15 gm Q15M PRN PO DECREASED GLUCOSE; Start 04/26/19 at 09:00 Glucose (Glutose) 22.5 gm Q15M PRN PO DECREASED GLUCOSE; Start 04/26/19 at 09:00 Dextrose (D50w Syringe) 25 ml Q15M PRN IV DECREASED GLUCOSE; Start 04/26/19 at 09:00 Dextrose (D50w Syringe) 50 ml Q15M PRN IV DECREASED GLUCOSE; Start 04/26/19 at 09:00 Glucagon (Glucagen) 1 mg Q15M PRN IM DECREASED GLUCOSE; Start 04/26/19 at 09:00 Glucose (Glutose) 15 gm Q15M PRN BUCCAL DECREASED GLUCOSE; Start 04/26/19 at 09:00 Carisoprodol (Soma) 350 mg TID PRN PO SPASM Last administered on 04/28/19 05:48; Admin Dose 350 MG; Start 04/26/19 at 16:30 Trazodone HCl (Desyrel) 50 mg HS PO Last administered on 04/27/19 22:56; Admin Dose 50 MG; Start 04/26/19 at 21:00 Hydromorphone HCl (Dilaudid [employer]) 0.5 MG/HR CONTINUOUS R... Q4PCA IV Last administered on 04/28/19 07:36; Admin Dose 6 MG; Start 04/26/19 at 16:30 Lorazepam (Ativan) 1 mg Q6H PRN IV agitation Last administered on 04/26/19 18:06; Admin Dose 1 MG; Start 04/26/19 at 17:30 Lidocaine (Lidoderm) 1 patch DAILY TD Last administered on 04/27/19 13:18; Admin Dose 1 PATCH; Start 04/27/19 at 13:30 BOO CORRAL MD Apr 28, 2019 09:56
[2019-04-28 14:54] VITALS: BP 130/86; PULSE 81; RESP 16
[2019-04-28] MEDS ORDERED: LORAZEPAM 0.5 MG TAB PO PRN (18:00)
[2019-04-28] MEDS ORDERED: HYDROmorphONE 0.5 MG/0.5 ML SYG IV PRN (18:00)
[2019-04-28] MEDS: oxyCODONE (CR) 10 MG TAB [oxyCONTIN] PO SCH (18:45)
[2019-04-28] MEDS: HYDROmorphONE 4 MG TAB PO PRN ×2 (18:45→23:11)
[2019-04-28] MEDS ORDERED: DEXAMETHASONE 10 MG/ML 1 ML INJ IV ONE (19:00)
[2019-04-28 19:19] VITALS: BP 145/87; PULSE 79; RESP 18
[2019-04-28] MEDS: traZODone 50 MG TAB PO SCH (20:27)
[2019-04-28] MEDS: ATORVASTATIN 20 MG TAB PO SCH (20:27)
[2019-04-29 01:19] VITALS: BP 137/68; PULSE 62; RESP 18
[2019-04-29] MEDS: oxyCODONE (CR) 10 MG TAB [oxyCONTIN] PO SCH ×2 (01:23→08:28)
[2019-04-29] MEDS: HYDROmorphONE 4 MG TAB PO PRN ×2 (04:04→08:28)
[2019-04-29] MEDS: CARISOPRODOL 350 MG TAB PO PRN (06:34)
--- NOTE | 2019-04-29 07:26 | PDOCDIS ---
Discharge Instructions CONDITION [id number] Patient Condition: [id number] Good HOME CARE INSTRUCTIONS: [id number] Diet Instructions: [id number] Regular ACTIVITY: [id number] Activity Restrictions: Dqact2b Avoid heavy lifting Avoid Heavy Housework [id number] Bathing Restrictions: [id number] Shower FOLLOW UP/APPOINTMENTS Follow-up Plan Follow-up with Dr. King in 2 weeks KAREN KING MD Apr 29, 2019 07:26
[2019-04-29 07:56] VITALS: BP 131/62; PULSE 72; RESP 19
[2019-04-29] MEDS ORDERED: DEXAMETHASONE 4 MG/ML 1 ML INJ IV ONE (08:00)
--- NOTE | 2019-04-29 08:23 | CONS ---
Assessment/Plan Assessment/Plan Assessment/Plan (Daily) 1. Doing well post op cx spine surgery. 2. Elev Wbc likley sec to steroids, will repeat this am 3. BP controlled 4. CHO control acceptable 5. Can dc pending the latter Consultation Date/Type/Reason Admit Date/Time Apr 25, 2019 at 12:53 Initial Consult Date Date/Time of Note DATE: 04/29/19 TIME: 08:22 Detailed Summary Respiratory: No cough Cardiovascular: No chest pain Gastrointestinal: no complaints Genitourinary: no complaints Musculoskeletal: neck pain (less) Exam/Review of Systems Exam Vitals Vital Signs Date Temp Pulse Resp B/P (MAP) Pulse Ox O2 O2 Flow FiO2 Time Delivery Rate 04/29/19 98.1 72 19 131/62 98 07:56 (85) 04/29/19 Room Air 2.0 01:19 Intake and Output 04/28/19 04/28/19 04/29/19 1515:00 23:00 07:00 IntakeIntake Total 1550 ml OutputOutput Total 700 ml 15 ml 810 ml BalanceBalance -700 ml 1535 ml -810 ml Neck: No jvd Respiratory: clear to auscultation Cardiovascular: regular rate and rhythm Gastrointestinal: soft Extremities: No edema Results Result Diagram: 04/27/192 04/27/19 0442 Results 24hrs Laboratory Tests Test 04/28/19 08:52 04/28/19 12:42 04/28/19 18:48 Bedside Glucose 103 153 118 Medications Medication Current Medications Prochlorperazine (Compazine) 10 mg Q4H PRN PO NAUSEA/VOMITING; Start 04/25/19 at 21:00 Ondansetron HCl (Zofran Inj) 4 mg Q6H PRN IV NAUSEA/VOMITING; Start 04/25/19 at 21:00 Al Hydrox/Mg Hydrox/Simethicone (Mag-Al Plus) 15 ml Q4H PRN PO .CONSTIPATION; Start 04/25/19 at 21:00 Docusate Sodium (Colace) 100 mg BID PO Last administered on 04/28/19at 20:27; Admin Dose 100 MG; Start 04/26/19 at 09:00 Acetaminophen (Tylenol Tab) 650 mg Q4H PRN PO TEMP GREATER THAN 101F OR REGALADO; Start 04/25/19 at 21:00 IV Flush (NS 3 ml) 3 ml PER PROTOCOL IV Last administered on 04/25/19 23:54; Admin Dose 3 ML; Start 04/25/19 at 21:00 Naloxone HCl (Narcan) 0.2 mg Q2M PRN IV RR 8 BREATHS/MIN OR LESS; Start at 21:00 Amlodipine Besylate (Norvasc) 5 mg DAILY PO Last administered on 04/26/19 09:04; Admin Dose 5 MG; Start 04/26/19 at 09:00 Atorvastatin Calcium (Lipitor) 20 mg QHS PO Last administered on 04/28/19 20:27; Admin Dose 20 MG; Start 04/26/19 at 21:00 Lisinopril (Zestril) 10 mg DAILY PO Last administered on 04/27/19 08:47; Admin Dose 10 MG; Start 04/26/19 at 09:00 Insulin Aspart (Novolog Insulin Pen) NOVOLOG *MILD* ALGORITHM AC MEALS SC Last administered on 04/28/19 12:47; Admin Dose 1 UNIT; Start 04/26/19 at 11:10 Miscellaneous Information 1 ea NOTE XX ; Start 04/26/19 at 09:00 Glucose (Glutose) 15 gm Q15M PRN PO DECREASED GLUCOSE; Start 04/26/19 at 09:00 Glucose (Glutose) 22.5 gm Q15M PRN PO DECREASED GLUCOSE; Start 04/26/19 at 09:00 Dextrose (D50w Syringe) 25 ml Q15M PRN IV DECREASED GLUCOSE; Start 04/26/19 at 09:00 Dextrose (D50w Syringe) 50 ml Q15M PRN IV DECREASED GLUCOSE; Start 04/26/19 at 09:00 Glucagon (Glucagen) 1 mg Q15M PRN IM DECREASED GLUCOSE; Start 04/26/19 at 09:00 Glucose (Glutose) 15 gm Q15M PRN BUCCAL DECREASED GLUCOSE; Start 04/26/19 at 09:00 Carisoprodol (Soma) 350 mg TID PRN PO SPASM Last administered on 04/29/19 06:34; Admin Dose 350 MG; Start 04/26/19 at 16:30 Trazodone HCl (Desyrel) 50 mg HS PO Last administered on 04/28/19 20:27; Admin Dose 50 MG; Start 04/26/19 at 21:00 Lidocaine (Lidoderm) 1 patch DAILY TD Last administered on 04/28/19 17:06; Admin Dose 1 PATCH; Start 04/27/19 at 13:30 Oxycodone HCl (Oxycontin) 10 mg TID PO Last administered on 04/29/19 01:23; Admin Dose 10 MG; Start 04/28/19 at 18:00 Hydromorphone HCl (Dilaudid) 4 mg Q4H PRN PO SEVERE PAIN LEVEL 7-10 Last administered on 04/29/19 04:04; Admin Dose 4 MG; Start 04/28/19 at 18:00 Lorazepam (Ativan) 0.5 mg Q6H PRN PO ANXIETY Last administered on 04/28/19at 23:11; Admin Dose 0.5 MG; Start 04/28/19 at 18:00 Hydromorphone HCl (Dilaudid) 0.5 mg Q4H PRN IV SEVERE PAIN LEVEL 7-10; Start 04/28/19 at 18:00 KATHERINE NG MD Apr 29, 2019 08:23
[2019-04-29] MEDS: DOCUSATE SODIUM 100 MG CAP PO SCH (08:27)
[2019-04-29] MEDS: LISINOPRIL 10 MG TAB PO SCH (08:29)
[2019-04-29] MEDS: AMLODIPINE 5 MG TAB PO SCH (08:29)
== END 2019-04-29 10:15 | disposition home or self-care (01) | DRG 473 ==
LOC: REC 12:53 → EDSTATUS 15:00 → MS1 23:30
PROVIDERS: ADMIT Orthopaedic Surgery; ATTEND Orthopaedic Surgery
PROC: 0RR30JZ Replacement of Cervical Vertebral Disc with Synthetic Substitute, Open Approach (ICD-10-PCS; 2019-04-25)
PROC: 0RG20K0 Fusion of 2 or more Cervical Vertebral Joints with Nonautologous Tissue Substitute, Anterior Approach, Anterior Column, Open Approach (ICD-10-PCS; principal; 2019-04-25 15:00)
DX: M50.122 Cervical disc disorder at C5-C6 level with radiculopathy (principal); M48.02 Spinal stenosis, cervical region; E66.9 Obesity, unspecified; Z68.36 Body mass index [BMI] 36.0-36.9, adult; I10 Essential (primary) hypertension; E78.5 Hyperlipidemia, unspecified; Z87.891 Personal history of nicotine dependence; G89.29 Other chronic pain; E11.9 Type 2 diabetes mellitus without complications
CPT/HCPCS: 72020; 72052; 72125; 80048; 82962; 83036; 83735; 84100; 85014; 85018; 85025; 86850; 86900; 86901; 87086; 97116; 97161; J0131; J0690; J1100; J1170; J1815; J2060; J2250; J2405; J2710; J3010; J7030; L0174